=== PATIENT | male | born 1960 | race Hispanic/Latino ===

== ENCOUNTER 2022-01-11 18:27 | Emergency (ER) | payer BC ==
[~2022-01-11] VITALS: Ht 175.3 cm; Wt 78.1 kg
[2022-01-11 21:28] LABS: HEMATOCRIT 44.3 % (39.0-50.0); HEMOGLOBIN 14.9 g/dl (14.0-18.0); IMMATURE GRANULOCYTES 0.4 % (0.0-5.0); MEAN CELL VOLUME 93.3 fL CALC (80.0-100.0); MEAN CORPUSCULAR HGB 31.4 pG CALC (26.0-32.0); MEAN CORPUSCULAR HGB CONC 33.6 g/dL CAL (32.0-36.0); NEUT# 8.12 thou/uL (1.82-7.42); RED BLOOD COUNT 4.75 mill/uL (4.70-6.10); RED CELL DISTRI WIDTH 12.3 % (11.5-15.5)
[2022-01-11 21:39] LABS: ALBUMIN 4.3 g/dL (3.2-5.0); ALKALINE PHOSPHATASE 89 u/l (38-126); BILIRUBIN, TOTAL 0.6 mg/dL (0.0-1.4); BUN 11 mg/dL (9-20); BUN/CREATININE RATIO 15 (12-20 (CALC)); CARBON DIOXIDE 23 mmol/l (22-30); CHLORIDE 105 mmol/l (95-108); CREATININE 0.8 mg/dL (0.7-1.3); GFR FOR AFR.AMER. > 60 ML/MIN (>=60 (CALC)); GFR OTHER RACES > 60 ML/MIN (>=60 (CALC)); POTASSIUM 4.6 mmol/l (3.5-5.1); SGOT/AST 18 u/l (17-59)
[2022-01-11 22:15] LABS: ANION GAP 16 (6-22 (CALC)); SODIUM 139 mmol/l (137-146)
[2022-01-11] MEDS ORDERED: DIPHENHYDRAM50 M2 PO (22:23)
[2022-01-11] MEDS ORDERED: ULTRAM50 M1 PO (22:23)
[2022-01-11] MEDS ORDERED: MEDDOSEPAK PO (22:23)
[2022-01-11] MEDS ORDERED: BACTRIM DS1 TAB PO (22:23)
[2022-01-11 22:59] VITALS: BP 132/78
== END 2022-01-11 22:59 | disposition home or self-care (01) | DRG 603 ==
LOC: ED 18:27
PROVIDERS: Emergency Medicine
DX: L03.113 Cellulitis of right upper limb (principal); S50.861A Insect bite (nonvenomous) of right forearm, initial encounter; F17.210 Nicotine dependence, cigarettes, uncomplicated; W57.XXXA Bitten or stung by nonvenomous insect and other nonvenomous arthropods, initial encounter; Y93.H9 Activity, other involving exterior property and land maintenance, building and construction; Y92.007 Garden or yard of unspecified non-institutional (private) residence as the place of occurrence of the external cause